=== PATIENT | female | born 1955 | race African-American/Black ===

== ENCOUNTER 2022-02-16 10:42 | Inpatient (IN) | payer OTHER ==
[2022-02-16 12:13] VITALS: BMI 31.6
[2022-02-16] MEDS ORDERED: guaiFENesin 200 MG/10 ML 10 ML UNIT-DOSE CUPS PO PRN (13:02)
[2022-02-16] MEDS ORDERED: MAG HYDROX/AL HYDROX/SIMETH 30 ML UNIT-DOSE CUP PO PRN (13:02)
[2022-02-16] MEDS ORDERED: IBUPROFEN 400 MG TABLET (FP) PO PRN (13:02)
[2022-02-16] MEDS ORDERED: LOPERAMIDE HCL 2 MG CAPSULE PO PRN (13:02)
[2022-02-16] MEDS ORDERED: ACETAMINOPHEN 325 MG TABLET (FP) PO PRN (13:02)
[2022-02-16] MEDS ORDERED: P-EPHED 60MG/TRIPROLIDI 2.5MG TABLET PO PRN (13:02)
[2022-02-16] MEDS ORDERED: MAGNESIUM CITRATE 300 ML BOTTLE PO PRN (13:02)
[2022-02-16 14:53] LABS: HEMATOCRIT 38.2 % (32.4-45.2); HEMOGLOBIN 12.9 GM/dL (10.7-15.3); MCH 29.4 pg (25.7-33.7); MCHC 33.8 g/dl (32.0-36.0); MEAN PLT VOLUME 8.3 fl (7.5-11.1); PLATELET COUNT 259 10^3/uL (134-434); RBC 4.39 M/mm3 (3.60-5.2); RDW 13.7 % (11.6-15.6); WHITE BLOOD COUNT 6.6 K/mm3 (4.0-10.0)
[2022-02-16 15:20] LABS: BILIRUBIN,TOTAL 0.5 mg/dL (0.2-1)
[2022-02-16 15:36] LABS: ALBUMIN 3.7 g/dl (3.4-5.0); BLOOD UREA NITROGEN 9.8 mg/dL (7-18); CALCIUM 9.6 mg/dL (8.5-10.1)
[2022-02-16 15:39] LABS: CREATININE 1.1 mg/dL (0.55-1.3)
[2022-02-16 15:41] LABS: TOT PROT 7.8 g/dl (6.4-8.2)
[2022-02-16] MEDS ORDERED: PATIENT'S OWN MEDICATION (NON-FORMULARY) (Losartan/Hydrochlorothiazide [Losartan-Hctz 100- PO SCH (17:15)
[2022-02-16] MEDS ORDERED: TUBERCULIN PPD 5 TU/0.1ML VIAL ID ONE (17:19)
[2022-02-16] MEDS: NICOTINE 7 MG/24 HOURS TOPICAL PATCH TD SCH (17:23)
[2022-02-16] MEDS: ASPIRIN COATED 81 MG TABLET.EC PO SCH (17:23)
[2022-02-16] MEDS: LOSARTAN POTASSIUM 50 MG TABLET PO SCH (17:34)
[2022-02-16] MEDS: HYDROCHLOROTHIAZIDE 25 MG TABLET (FP) PO SCH (17:34)
[2022-02-16] MEDS: MELATONIN 5 MG TABLETS PO SCH (21:40)
[2022-02-16] MEDS: DOCUSATE SODIUM 100 MG CAPSULE (FP) PO SCH (21:41)
[2022-02-16] MEDS: THIAMINE HCL 100 MG TABLET (FP) PO SCH (21:41)
[2022-02-16] MEDS: hydrOXYzine PAMOATE 25 MG CAPSULE (FP) PO PRN (21:43)
[2022-02-17] MEDS: glipiZIDE 5 MG TABLET (FP) PO SCH ×2 (07:19→16:36)
[2022-02-17] MEDS: PRENATAL VITAMINS W/ FOLIC ACID TABLET (FP) PO SCH (10:16)
[2022-02-17] MEDS: DOCUSATE SODIUM 100 MG CAPSULE (FP) PO SCH ×2 (10:17→21:11)
[2022-02-17] MEDS: ASPIRIN COATED 81 MG TABLET.EC PO SCH (10:17)
[2022-02-17] MEDS: NICOTINE 7 MG/24 HOURS TOPICAL PATCH TD SCH (10:17)
[2022-02-17] MEDS: HYDROCHLOROTHIAZIDE 25 MG TABLET (FP) PO SCH (10:17)
[2022-02-17] MEDS: LOSARTAN POTASSIUM 50 MG TABLET PO SCH (10:18)
[2022-02-17] MEDS ORDERED: POTASSIUM CHLORIDE TABS 20 MEQ TABLET.ER (FP) PO ONE (11:41)
[2022-02-17] MEDS: NICOTINE 10 MG CARTRIDGE (INHALER) IH PRN (13:40)
[2022-02-17 17:52] LABS: EPI CELLS 28 /uL (0-25.1); HYALINE CASTS 1 /uL (0-3.1); URINE APPEARANCE CLEAR; URINE BACTERIA 783 /uL (0-1359); URINE BILIRUBIN NEGATIVE (NEGATIVE); URINE COLOR YELLOW; URINE GLUCOSE (UA) NEGATIVE (NEGATIVE); URINE KETONE NEGATIVE (NEGATIVE); URINE LEUK ESTERASE 2+ (NEGATIVE); URINE NITRITE NEGATIVE (NEGATIVE); URINE PROTEIN NEGATIVE (NEGATIVE); URINE RBC 8 /uL (0-23.9); URINE UROBILINOGEN 0.2 mg/dL (0.2-1.0); URINE WBC 99 /uL (0-25.8)
[2022-02-17] MEDS: MELATONIN 5 MG TABLETS PO SCH (21:11)
[2022-02-17] MEDS: THIAMINE HCL 100 MG TABLET (FP) PO SCH (21:11)
[2022-02-17] MEDS: BENZTROPINE MESYLATE 1 MG TABLET PO SCH (21:14)
[2022-02-17] MEDS: risperiDONE 2 MG TABLET PO SCH (21:14)
[2022-02-17] MEDS: POTASSIUM CHLORIDE TABS 20 MEQ TABLET.ER (FP) PO SCH (21:14)
[2022-02-17] MEDS: traZODone HCL 100 MG TABLET (FP) PO SCH (21:14)
[2022-02-17] MEDS: ATORVASTATIN CA 40 MG TABLET (FP) PO SCH (21:14)
[2022-02-17] MEDS: ESCITALOPRAM OXALATE 20 MG TABLET PO SCH (21:14)
[2022-02-18] MEDS: glipiZIDE 5 MG TABLET (FP) PO SCH ×2 (06:30→16:19)
[2022-02-18] MEDS: PRENATAL VITAMINS W/ FOLIC ACID TABLET (FP) PO SCH (09:53)
[2022-02-18] MEDS: ASPIRIN COATED 81 MG TABLET.EC PO SCH (09:53)
[2022-02-18] MEDS: LOSARTAN POTASSIUM 50 MG TABLET PO SCH (09:54)
[2022-02-18] MEDS: DOCUSATE SODIUM 100 MG CAPSULE (FP) PO SCH ×2 (09:54→21:41)
[2022-02-18] MEDS: NICOTINE 7 MG/24 HOURS TOPICAL PATCH TD SCH (09:54)
[2022-02-18] MEDS: POTASSIUM CHLORIDE TABS 20 MEQ TABLET.ER (FP) PO SCH ×2 (09:54→21:42)
[2022-02-18] MEDS: HYDROCHLOROTHIAZIDE 25 MG TABLET (FP) PO SCH (09:54)
[2022-02-18] MEDS: FAMOTIDINE 20 MG TABLET PO SCH (14:46)
[2022-02-18] MEDS: MAGNESIUM HYDROX 2400MG/30ML ORAL SUSPENSION 30 ML CUP PO PRN (16:14)
[2022-02-18] MEDS: ATORVASTATIN CA 40 MG TABLET (FP) PO SCH (21:41)
[2022-02-18] MEDS: ESCITALOPRAM OXALATE 20 MG TABLET PO SCH (21:41)
[2022-02-18] MEDS: risperiDONE 2 MG TABLET PO SCH (21:41)
[2022-02-18] MEDS: BENZTROPINE MESYLATE 1 MG TABLET PO SCH (21:41)
[2022-02-18] MEDS: traZODone HCL 100 MG TABLET (FP) PO SCH (21:41)
[2022-02-18] MEDS: THIAMINE HCL 100 MG TABLET (FP) PO SCH (21:42)
[2022-02-18] MEDS: MELATONIN 5 MG TABLETS PO SCH (21:42)
[2022-02-19] MEDS: glipiZIDE 5 MG TABLET (FP) PO SCH ×2 (06:41→16:48)
[2022-02-19] MEDS: POTASSIUM CHLORIDE TABS 20 MEQ TABLET.ER (FP) PO SCH ×2 (09:57→21:36)
[2022-02-19] MEDS: ASPIRIN COATED 81 MG TABLET.EC PO SCH (09:57)
[2022-02-19] MEDS: FAMOTIDINE 20 MG TABLET PO SCH (09:57)
[2022-02-19] MEDS: HYDROCHLOROTHIAZIDE 25 MG TABLET (FP) PO SCH (09:57)
[2022-02-19] MEDS: PRENATAL VITAMINS W/ FOLIC ACID TABLET (FP) PO SCH (09:57)
[2022-02-19] MEDS: DOCUSATE SODIUM 100 MG CAPSULE (FP) PO SCH ×2 (09:57→21:36)
[2022-02-19] MEDS: LOSARTAN POTASSIUM 50 MG TABLET PO SCH (09:57)
[2022-02-19] MEDS: NICOTINE 7 MG/24 HOURS TOPICAL PATCH TD SCH (09:58)
[2022-02-19] MEDS: MAGNESIUM HYDROX 2400MG/30ML ORAL SUSPENSION 30 ML CUP PO PRN (13:48)
[2022-02-19] MEDS: ATORVASTATIN CA 40 MG TABLET (FP) PO SCH (21:36)
[2022-02-19] MEDS: ESCITALOPRAM OXALATE 20 MG TABLET PO SCH (21:36)
[2022-02-19] MEDS: BENZTROPINE MESYLATE 1 MG TABLET PO SCH (21:36)
[2022-02-19] MEDS: THIAMINE HCL 100 MG TABLET (FP) PO SCH (21:36)
[2022-02-19] MEDS: risperiDONE 2 MG TABLET PO SCH (21:36)
[2022-02-19] MEDS: traZODone HCL 100 MG TABLET (FP) PO SCH (21:36)
[2022-02-19] MEDS: MELATONIN 5 MG TABLETS PO SCH (21:37)
[2022-02-20] MEDS: glipiZIDE 5 MG TABLET (FP) PO SCH ×2 (06:13→16:30)
[2022-02-20] MEDS: DOCUSATE SODIUM 100 MG CAPSULE (FP) PO SCH ×2 (10:31→21:24)
[2022-02-20] MEDS: ASPIRIN COATED 81 MG TABLET.EC PO SCH (10:31)
[2022-02-20] MEDS: PRENATAL VITAMINS W/ FOLIC ACID TABLET (FP) PO SCH (10:31)
[2022-02-20] MEDS: LOSARTAN POTASSIUM 50 MG TABLET PO SCH (10:31)
[2022-02-20] MEDS: FAMOTIDINE 20 MG TABLET PO SCH (10:31)
[2022-02-20] MEDS: HYDROCHLOROTHIAZIDE 25 MG TABLET (FP) PO SCH (10:31)
[2022-02-20] MEDS: NICOTINE 7 MG/24 HOURS TOPICAL PATCH TD SCH (10:31)
[2022-02-20] MEDS: POTASSIUM CHLORIDE TABS 20 MEQ TABLET.ER (FP) PO SCH (10:32)
[2022-02-20 10:38] LABS: ALBUMIN 3.2 g/dl (3.4-5.0); BLOOD UREA NITROGEN 13.2 mg/dL (7-18)
[2022-02-20 10:41] LABS: CALCIUM 9.7 mg/dL (8.5-10.1)
[2022-02-20 10:43] LABS: TOT PROT 6.8 g/dl (6.4-8.2)
[2022-02-20 10:54] LABS: BILIRUBIN,TOTAL 0.4 mg/dL (0.2-1)
[2022-02-20] MEDS: hydrOXYzine PAMOATE 25 MG CAPSULE (FP) PO PRN (21:22)
[2022-02-20] MEDS: THIAMINE HCL 100 MG TABLET (FP) PO SCH (21:22)
[2022-02-20] MEDS: MELATONIN 5 MG TABLETS PO SCH (21:22)
[2022-02-20] MEDS: BENZTROPINE MESYLATE 1 MG TABLET PO SCH (21:23)
[2022-02-20] MEDS: ESCITALOPRAM OXALATE 20 MG TABLET PO SCH (21:23)
[2022-02-20] MEDS: ATORVASTATIN CA 40 MG TABLET (FP) PO SCH (21:23)
[2022-02-20] MEDS: risperiDONE 2 MG TABLET PO SCH (21:23)
[2022-02-20] MEDS: traZODone HCL 100 MG TABLET (FP) PO SCH (21:23)
[2022-02-20] MEDS: NICOTINE 10 MG CARTRIDGE (INHALER) IH PRN (21:24)
[2022-02-21] MEDS: glipiZIDE 5 MG TABLET (FP) PO SCH ×2 (07:05→16:39)
[2022-02-21] MEDS: DOCUSATE SODIUM 100 MG CAPSULE (FP) PO SCH ×2 (10:28→21:26)
[2022-02-21] MEDS: PRENATAL VITAMINS W/ FOLIC ACID TABLET (FP) PO SCH (10:28)
[2022-02-21] MEDS: LOSARTAN POTASSIUM 50 MG TABLET PO SCH (10:28)
[2022-02-21] MEDS: FAMOTIDINE 20 MG TABLET PO SCH (10:28)
[2022-02-21] MEDS: HYDROCHLOROTHIAZIDE 25 MG TABLET (FP) PO SCH (10:28)
[2022-02-21] MEDS: NICOTINE 7 MG/24 HOURS TOPICAL PATCH TD SCH (10:29)
[2022-02-21] MEDS: ASPIRIN COATED 81 MG TABLET.EC PO SCH (10:29)
[2022-02-21] MEDS: traZODone HCL 100 MG TABLET (FP) PO SCH (21:26)
[2022-02-21] MEDS: risperiDONE 2 MG TABLET PO SCH (21:26)
[2022-02-21] MEDS: MELATONIN 5 MG TABLETS PO SCH (21:26)
[2022-02-21] MEDS: ATORVASTATIN CA 40 MG TABLET (FP) PO SCH (21:26)
[2022-02-21] MEDS: BENZTROPINE MESYLATE 1 MG TABLET PO SCH (21:26)
[2022-02-21] MEDS: ESCITALOPRAM OXALATE 20 MG TABLET PO SCH (21:26)
[2022-02-21] MEDS: THIAMINE HCL 100 MG TABLET (FP) PO SCH (21:26)
[2022-02-22] MEDS: glipiZIDE 5 MG TABLET (FP) PO SCH ×2 (06:35→16:31)
[2022-02-22] MEDS: DOCUSATE SODIUM 100 MG CAPSULE (FP) PO SCH ×2 (09:58→21:39)
[2022-02-22] MEDS: PRENATAL VITAMINS W/ FOLIC ACID TABLET (FP) PO SCH (09:58)
[2022-02-22] MEDS: ASPIRIN COATED 81 MG TABLET.EC PO SCH (09:58)
[2022-02-22] MEDS: LOSARTAN POTASSIUM 50 MG TABLET PO SCH (09:58)
[2022-02-22] MEDS: HYDROCHLOROTHIAZIDE 25 MG TABLET (FP) PO SCH (09:58)
[2022-02-22] MEDS: FAMOTIDINE 20 MG TABLET PO SCH (09:58)
[2022-02-22] MEDS: NICOTINE 7 MG/24 HOURS TOPICAL PATCH TD SCH (09:59)
[2022-02-22] MEDS: risperiDONE 2 MG TABLET PO SCH (21:39)
[2022-02-22] MEDS: THIAMINE HCL 100 MG TABLET (FP) PO SCH (21:39)
[2022-02-22] MEDS: ESCITALOPRAM OXALATE 20 MG TABLET PO SCH (21:39)
[2022-02-22] MEDS: BENZTROPINE MESYLATE 1 MG TABLET PO SCH (21:39)
[2022-02-22] MEDS: traZODone HCL 100 MG TABLET (FP) PO SCH (21:39)
[2022-02-22] MEDS: ATORVASTATIN CA 40 MG TABLET (FP) PO SCH (21:40)
[2022-02-22] MEDS: MELATONIN 5 MG TABLETS PO SCH (21:40)
[2022-02-23] MEDS: glipiZIDE 5 MG TABLET (FP) PO SCH ×2 (07:36→17:38)
[2022-02-23] MEDS: PRENATAL VITAMINS W/ FOLIC ACID TABLET (FP) PO SCH (10:23)
[2022-02-23] MEDS: ASPIRIN COATED 81 MG TABLET.EC PO SCH (10:24)
[2022-02-23] MEDS: HYDROCHLOROTHIAZIDE 25 MG TABLET (FP) PO SCH (10:24)
[2022-02-23] MEDS: LOSARTAN POTASSIUM 50 MG TABLET PO SCH (10:24)
[2022-02-23] MEDS: FAMOTIDINE 20 MG TABLET PO SCH (10:24)
[2022-02-23] MEDS: DOCUSATE SODIUM 100 MG CAPSULE (FP) PO SCH ×2 (10:24→21:34)
[2022-02-23] MEDS: NICOTINE 7 MG/24 HOURS TOPICAL PATCH TD SCH (10:24)
[2022-02-23] MEDS: ESCITALOPRAM OXALATE 20 MG TABLET PO SCH (21:34)
[2022-02-23] MEDS: risperiDONE 2 MG TABLET PO SCH (21:34)
[2022-02-23] MEDS: ATORVASTATIN CA 40 MG TABLET (FP) PO SCH (21:34)
[2022-02-23] MEDS: traZODone HCL 100 MG TABLET (FP) PO SCH (21:34)
[2022-02-23] MEDS: THIAMINE HCL 100 MG TABLET (FP) PO SCH (21:34)
[2022-02-23] MEDS: BENZTROPINE MESYLATE 1 MG TABLET PO SCH (21:35)
[2022-02-23] MEDS: MELATONIN 5 MG TABLETS PO SCH (21:35)
[2022-02-24] MEDS: glipiZIDE 5 MG TABLET (FP) PO SCH ×2 (06:44→16:33)
[2022-02-24] MEDS: DOCUSATE SODIUM 100 MG CAPSULE (FP) PO SCH ×2 (10:37→21:10)
[2022-02-24] MEDS: HYDROCHLOROTHIAZIDE 25 MG TABLET (FP) PO SCH ×2 (10:37→14:38)
[2022-02-24] MEDS: PRENATAL VITAMINS W/ FOLIC ACID TABLET (FP) PO SCH (10:37)
[2022-02-24] MEDS: ASPIRIN COATED 81 MG TABLET.EC PO SCH (10:37)
[2022-02-24] MEDS: FAMOTIDINE 20 MG TABLET PO SCH (10:37)
[2022-02-24] MEDS: NICOTINE 7 MG/24 HOURS TOPICAL PATCH TD SCH (10:38)
[2022-02-24] MEDS: LOSARTAN POTASSIUM 50 MG TABLET PO SCH (10:40)
[2022-02-24] MEDS: BENZTROPINE MESYLATE 1 MG TABLET PO SCH (21:10)
[2022-02-24] MEDS: MELATONIN 5 MG TABLETS PO SCH (21:11)
[2022-02-24] MEDS: ATORVASTATIN CA 40 MG TABLET (FP) PO SCH (21:11)
[2022-02-24] MEDS: risperiDONE 2 MG TABLET PO SCH (21:11)
[2022-02-24] MEDS: ESCITALOPRAM OXALATE 20 MG TABLET PO SCH (21:11)
[2022-02-24] MEDS: THIAMINE HCL 100 MG TABLET (FP) PO SCH (21:11)
[2022-02-24] MEDS: traZODone HCL 100 MG TABLET (FP) PO SCH (21:11)
[2022-02-25] MEDS: glipiZIDE 5 MG TABLET (FP) PO SCH ×2 (06:36→16:53)
[2022-02-25] MEDS: HYDROCHLOROTHIAZIDE 25 MG TABLET (FP) PO SCH (10:54)
[2022-02-25] MEDS: ASPIRIN COATED 81 MG TABLET.EC PO SCH (10:54)
[2022-02-25] MEDS: DOCUSATE SODIUM 100 MG CAPSULE (FP) PO SCH ×2 (10:54→21:54)
[2022-02-25] MEDS: FAMOTIDINE 20 MG TABLET PO SCH (10:54)
[2022-02-25] MEDS: LOSARTAN POTASSIUM 50 MG TABLET PO SCH (10:54)
[2022-02-25] MEDS: PRENATAL VITAMINS W/ FOLIC ACID TABLET (FP) PO SCH (10:54)
[2022-02-25] MEDS: NICOTINE 7 MG/24 HOURS TOPICAL PATCH TD SCH (10:55)
[2022-02-25] MEDS: MELATONIN 5 MG TABLETS PO SCH (21:54)
[2022-02-25] MEDS: THIAMINE HCL 100 MG TABLET (FP) PO SCH (21:54)
[2022-02-25] MEDS: ATORVASTATIN CA 40 MG TABLET (FP) PO SCH (21:54)
[2022-02-25] MEDS: traZODone HCL 100 MG TABLET (FP) PO SCH (21:54)
[2022-02-25] MEDS: BENZTROPINE MESYLATE 1 MG TABLET PO SCH (21:54)
[2022-02-25] MEDS: risperiDONE 2 MG TABLET PO SCH (21:54)
[2022-02-25] MEDS: ESCITALOPRAM OXALATE 20 MG TABLET PO SCH (21:54)
[2022-02-26] MEDS: glipiZIDE 5 MG TABLET (FP) PO SCH ×2 (06:27→16:56)
[2022-02-26] MEDS: PRENATAL VITAMINS W/ FOLIC ACID TABLET (FP) PO SCH (10:31)
[2022-02-26] MEDS: FAMOTIDINE 20 MG TABLET PO SCH (10:32)
[2022-02-26] MEDS: ASPIRIN COATED 81 MG TABLET.EC PO SCH (10:32)
[2022-02-26] MEDS: LOSARTAN POTASSIUM 50 MG TABLET PO SCH (10:32)
[2022-02-26] MEDS: DOCUSATE SODIUM 100 MG CAPSULE (FP) PO SCH ×2 (10:32→21:41)
[2022-02-26] MEDS: HYDROCHLOROTHIAZIDE 25 MG TABLET (FP) PO SCH (10:32)
[2022-02-26] MEDS: NICOTINE 7 MG/24 HOURS TOPICAL PATCH TD SCH (10:33)
[2022-02-26] MEDS: THIAMINE HCL 100 MG TABLET (FP) PO SCH (21:40)
[2022-02-26] MEDS: BENZTROPINE MESYLATE 1 MG TABLET PO SCH (21:40)
[2022-02-26] MEDS: traZODone HCL 100 MG TABLET (FP) PO SCH (21:41)
[2022-02-26] MEDS: ATORVASTATIN CA 40 MG TABLET (FP) PO SCH (21:41)
[2022-02-26] MEDS: ESCITALOPRAM OXALATE 20 MG TABLET PO SCH (21:41)
[2022-02-26] MEDS: risperiDONE 2 MG TABLET PO SCH (21:41)
[2022-02-26] MEDS: MELATONIN 5 MG TABLETS PO SCH (21:42)
[2022-02-26] MEDS: NICOTINE 10 MG CARTRIDGE (INHALER) IH PRN (22:09)
[2022-02-27] MEDS: glipiZIDE 5 MG TABLET (FP) PO SCH ×2 (06:29→17:02)
[2022-02-27] MEDS: HYDROCHLOROTHIAZIDE 25 MG TABLET (FP) PO SCH (10:45)
[2022-02-27] MEDS: LOSARTAN POTASSIUM 50 MG TABLET PO SCH (10:45)
[2022-02-27] MEDS: PRENATAL VITAMINS W/ FOLIC ACID TABLET (FP) PO SCH (10:45)
[2022-02-27] MEDS: FAMOTIDINE 20 MG TABLET PO SCH (10:45)
[2022-02-27] MEDS: DOCUSATE SODIUM 100 MG CAPSULE (FP) PO SCH ×2 (10:45→21:21)
[2022-02-27] MEDS: ASPIRIN COATED 81 MG TABLET.EC PO SCH (10:45)
[2022-02-27] MEDS: NICOTINE 7 MG/24 HOURS TOPICAL PATCH TD SCH (10:46)
[2022-02-27] MEDS: BENZTROPINE MESYLATE 1 MG TABLET PO SCH (21:21)
[2022-02-27] MEDS: ESCITALOPRAM OXALATE 20 MG TABLET PO SCH (21:21)
[2022-02-27] MEDS: ATORVASTATIN CA 40 MG TABLET (FP) PO SCH (21:21)
[2022-02-27] MEDS: THIAMINE HCL 100 MG TABLET (FP) PO SCH (21:21)
[2022-02-27] MEDS: risperiDONE 2 MG TABLET PO SCH (21:22)
[2022-02-27] MEDS: MELATONIN 5 MG TABLETS PO SCH (21:22)
[2022-02-27] MEDS: traZODone HCL 100 MG TABLET (FP) PO SCH (21:22)
[2022-02-28] MEDS: glipiZIDE 5 MG TABLET (FP) PO SCH ×2 (06:18→16:56)
[2022-02-28] MEDS: ASPIRIN COATED 81 MG TABLET.EC PO SCH (10:32)
[2022-02-28] MEDS: DOCUSATE SODIUM 100 MG CAPSULE (FP) PO SCH ×2 (10:32→21:40)
[2022-02-28] MEDS: HYDROCHLOROTHIAZIDE 25 MG TABLET (FP) PO SCH (10:32)
[2022-02-28] MEDS: LOSARTAN POTASSIUM 50 MG TABLET PO SCH (10:32)
[2022-02-28] MEDS: PRENATAL VITAMINS W/ FOLIC ACID TABLET (FP) PO SCH (10:32)
[2022-02-28] MEDS: FAMOTIDINE 20 MG TABLET PO SCH (10:32)
[2022-02-28] MEDS: NICOTINE 7 MG/24 HOURS TOPICAL PATCH TD SCH (10:33)
[2022-02-28] MEDS: ATORVASTATIN CA 40 MG TABLET (FP) PO SCH (21:40)
[2022-02-28] MEDS: BENZTROPINE MESYLATE 1 MG TABLET PO SCH (21:40)
[2022-02-28] MEDS: traZODone HCL 100 MG TABLET (FP) PO SCH (21:40)
[2022-02-28] MEDS: ESCITALOPRAM OXALATE 20 MG TABLET PO SCH (21:40)
[2022-02-28] MEDS: risperiDONE 2 MG TABLET PO SCH (21:40)
[2022-02-28] MEDS: THIAMINE HCL 100 MG TABLET (FP) PO SCH (21:41)
[2022-02-28] MEDS: MELATONIN 5 MG TABLETS PO SCH (21:41)
[2022-03-01] MEDS: glipiZIDE 5 MG TABLET (FP) PO SCH ×2 (06:34→16:38)
[2022-03-01 08:04] VITALS: RESP 18; TEMP 97.1
[2022-03-01] MEDS: DOCUSATE SODIUM 100 MG CAPSULE (FP) PO SCH ×2 (10:36→21:07)
[2022-03-01] MEDS: ASPIRIN COATED 81 MG TABLET.EC PO SCH (10:36)
[2022-03-01] MEDS: PRENATAL VITAMINS W/ FOLIC ACID TABLET (FP) PO SCH (10:36)
[2022-03-01] MEDS: HYDROCHLOROTHIAZIDE 25 MG TABLET (FP) PO SCH (10:36)
[2022-03-01] MEDS: LOSARTAN POTASSIUM 50 MG TABLET PO SCH (10:36)
[2022-03-01] MEDS: FAMOTIDINE 20 MG TABLET PO SCH (10:36)
[2022-03-01] MEDS: NICOTINE 7 MG/24 HOURS TOPICAL PATCH TD SCH (10:37)
[2022-03-01] MEDS: traZODone HCL 100 MG TABLET (FP) PO SCH (21:07)
[2022-03-01] MEDS: risperiDONE 2 MG TABLET PO SCH (21:07)
[2022-03-01] MEDS: THIAMINE HCL 100 MG TABLET (FP) PO SCH (21:07)
[2022-03-01] MEDS: ESCITALOPRAM OXALATE 20 MG TABLET PO SCH (21:07)
[2022-03-01] MEDS: ATORVASTATIN CA 40 MG TABLET (FP) PO SCH (21:07)
[2022-03-01] MEDS: BENZTROPINE MESYLATE 1 MG TABLET PO SCH (21:08)
[2022-03-01] MEDS: MELATONIN 5 MG TABLETS PO SCH (21:08)
[2022-03-02] MEDS: glipiZIDE 5 MG TABLET (FP) PO SCH (06:50)
[2022-03-02 07:18] VITALS: BP 146/84; PULSE 100
[2022-03-02] MEDS: PRENATAL VITAMINS W/ FOLIC ACID TABLET (FP) PO SCH (09:46)
[2022-03-02] MEDS: HYDROCHLOROTHIAZIDE 25 MG TABLET (FP) PO SCH (09:47)
[2022-03-02] MEDS: ASPIRIN COATED 81 MG TABLET.EC PO SCH (09:47)
[2022-03-02] MEDS: FAMOTIDINE 20 MG TABLET PO SCH (09:47)
[2022-03-02] MEDS: DOCUSATE SODIUM 100 MG CAPSULE (FP) PO SCH (09:47)
[2022-03-02] MEDS: LOSARTAN POTASSIUM 50 MG TABLET PO SCH (09:47)
[2022-03-02] MEDS: NICOTINE 7 MG/24 HOURS TOPICAL PATCH TD SCH (09:47)
== END 2022-03-02 10:45 | disposition home or self-care (01) | DRG 895 ==
LOC: YASAS 10:42 → Y5N 17:02
PROVIDERS: ADMIT Allergy & Immunology; ATTEND Psychiatry & Neurology Pain Medicine
PROC: HZ42ZZZ Group Counseling for Substance Abuse Treatment, Cognitive-Behavioral (ICD-10-PCS; principal; 2022-02-16)
DX: F10.20 Alcohol dependence, uncomplicated (principal); F14.20 Cocaine dependence, uncomplicated; F19.280 Other psychoactive substance dependence with psychoactive substance-induced anxiety disorder; F19.282 Other psychoactive substance dependence with psychoactive substance-induced sleep disorder; F12.20 Cannabis dependence, uncomplicated; F17.210 Nicotine dependence, cigarettes, uncomplicated; F19.24 Other psychoactive substance dependence with psychoactive substance-induced mood disorder; F32.9 Major depressive disorder, single episode, unspecified; F41.9 Anxiety disorder, unspecified; E78.5 Hyperlipidemia, unspecified; I10 Essential (primary) hypertension; E11.9 Type 2 diabetes mellitus without complications; Z79.84 Long term (current) use of oral hypoglycemic drugs; Z86.11 Personal history of tuberculosis; Z91.410 Personal history of adult physical and sexual abuse
CPT/HCPCS: 36415; 71046-TC-FY; 80053; 81003; 82962; 85027; 86780; C9803-CS; U0003; U0005